=== PATIENT | female | born 1990 | race Caucasian/White ===

== ENCOUNTER 2016-12-01 03:37 | Emergency (ER) | payer OTHER ==
[~2016-12-01] VITALS: Ht 167.6 cm; Wt 63.5 kg
[~2016-12-01 03:37] MED LIST: MEDR150D9
[2016-12-01 03:43] VITALS: Ht 167.6 cm; Wt 63.5 kg
--- NOTE | 2016-12-01 04:25 | RADRPT ---
PROCEDURE: CHEST - 1 VIEW CLINICAL INDICATION: 26-year-old female with cough for 1 month. TECHNIQUE: A single frontal AP semi-erect view of the chest was performed portably. The images we re reviewed on a PACS workstation. COMPARISON: None. FINDINGS: The cardiomediastinal silhouette has a normal appearance. There is no evidence for an infiltrate. T he pulmonary vascularity is within normal limits. There is no evidence for pneumothorax or pneumomed iastinum. The osseous structures are intact. IMPRESSION: No evidence for active cardiopulmonary disease. .Jose Cason MD, Date Time Electronically viewed and signed by .Jose Cason MD, on 12/01/2016 04:24 .Eli/
[2016-12-01] MEDS ORDERED: IPRATROPIUM (NEB) 0.5 MG/2.5 ML AMP NEB STA (04:27)
[2016-12-01] MEDS ORDERED: ALBUTEROL 0.5% (NEB) 2.5 MG/0.5 ML AMP NEB STA (04:27)
--- NOTE | 2016-12-01 04:32 | ERD ---
ER Documentation Chief Complaint Date/Time DATE: 12/01/16 TIME: 04:28 Chief Complaint cough x 1 month, also c/o redness left eye x 3 days HPI 26-year-old female presents here in emergency department for complaints of cough for 1 month. Patient has been having dry cough, with on and off wheezing. Patient has a history of smoking daily. She does not have any fever or chills. Patient was taking course of azithromycin, loss the last 2 pills. She denies any fever or chills. Patient denies any chest pain or palpitations. Patient denies any dizziness. Patient also has history of acid reflux disease. ROS All systems reviewed and are negative except as per history of present illness. Medications Home Meds Active Scripts Cetirizine Hcl* (Zyrtec*) 10 Mg Capsule, 10 MG PO DAILY, #30 TAB.CHEW Prov:MYRON ARORA NP 12/01/16 Fluticasone Propionate (Flonase Allergy Relief) 9.9 Ml [place].susp, 1 SPRAY NASAL BID, #1 BOTTLE TO EACH NOSTRIL Prov:MYRON ARORA NP 12/01/16 Magaldrate/Simethicone* (Mylanta*) 355 Ml Susp, 30 ML PO QID Y for GASTROINTESTINAL UPSET, #1 BOTTLE Prov:MYRON ARORA NP 12/01/16 Guaifenesin-Codeine Phosphate* (Guaifenesin* AC Cough Syrup) 473 Ml Liquid, 5 ML PO Q4H Y for COUGH, #60 ML Prov:MYRON ARORA NP 12/01/16 Albuterol Sulfate* (Proair HFA*) 8.5 Gm Hfa.aer.ad, 2 PUFF INH Q4H Y for WHEEZING AND SOB, #1 INHALER Prov:MYRON ARORA NP 12/01/16 Reported Medications Medroxyprogesterone Acetate* (Depo-Provera*) 150 Mg/Ml Disp.syrin 12/01/09 Allergies Allergies: Coded Allergies: Penicillins (Verified Allergy, Mild, 12/01/16) PMhx/Soc Medical and Surgical Hx: pt denies Medical Hx, pt denies Surgical Hx History of Surgery: No Anesthesia Reaction: No Hx Neurological Disorder: No Hx Respiratory Disorders: No Hx Cardiac Disorders: No Hx Psychiatric Problems: No Hx Miscellaneous Medical Probl: No (DENIES MEDICAL AND SURGICAL HX.) Hx Alcohol Use: No Hx Substance Use: No Hx Tobacco Use: Yes Smoking Status: Current every day smoker FmHx Family History: No coronary disease, No diabetes, No other Physical Exam Vitals Vital Signs Date Time Temp Pulse Resp B/P Pulse Ox O2 Delivery O2 Flow Rate FiO2 12/01/16 04:44 91 22 99 21 12/01/16 03:43 98.6 99 20 123/73 99 Physical Exam GENERAL: The patient is well developed and appropriate for usual state of health, in no apparent distress. HEENT: Atraumatic. Noted left lower eyelid to be erythematous and swelling, left upper eyelid normal, right upper and lower eyelid are normal. Her eyes are PERRL EOM intact, no erythema in the conjunctiva noted. Ears: Normal tympanic membrane, no erythema or bulging. No ear canal swelling. No ear discharge. Nose : normal nasal turbinates, no erythema or swelling. Normal nasal discharge. Throat: oropharynx clear. No tonsillar swelling or tonsillar exudates. No lymphadenopathy. CHEST: Diffuse wheezing bilaterally. There are no rales, crackles or rhonchi. HEART: Regular rate and rhythm. No murmurs, clicks, rubs or gallops. No S3 or S4. ABDOMEN: Soft, nontender and nondistended. Good bowel sounds. No rebound or guarding. No gross peritonitis. No gross organomegaly or masses. No Burns sign or McBurney point tenderness. BACK: No midline or flank tenderness. EXTREMITIES: Equal pulses bilaterally. There is no peripheral clubbing, cyanosis or edema. No focal swelling or erythema. Full range of motion. Grossly neurovascularly intact. NEURO: Alert and oriented. Cranial nerves 2-12 intact. Motor strength in all 4 extremities with 5/5 strength. Sensation grossly intact. Normal speech and gait. SKIN: There is no apparent rash or petechia. The skin is warm and dry. HEMATOLOGIC AND LYMPHATIC: There is no evidence of excessive bruising or lymphedema. No gross cervical, axillary, or inguinal lymphadenopathy. Results 24 hrs Current Medications Medications (Trade) Dose Ordered Sig/Shannan Route PRN Reason Start Time Stop Time Status Last Admin Dose Admin Albuterol (Proventil 0.5% (Neb)) 5 mg ONCE STAT NEB 3/12/17 04:27 12/01/16 04:28 DC 12/01/16 04:40 Ipratropium Aubrey (Atrovent 0.02% (Neb)) 0.5 mg ONCE STAT NEB 12/01/16 04:27 12/01/16 04:28 DC 12/01/16 04:40 PROCEDURE: CHEST - 1 VIEW CLINICAL INDICATION: 26-year-old female with cough for 1 month. TECHNIQUE: A single frontal AP semi-erect view of the chest was performed portably. The images were reviewed on a PACS workstation. COMPARISON: None. FINDINGS: The cardiomediastinal silhouette has a normal appearance. There is no evidence for an infiltrate. The pulmonary vascularity is within normal limits. There is no evidence for pneumothorax or pneumomediastinum. The osseous structures are intact. IMPRESSION: No evidence for active cardiopulmonary disease. .Jose Cason MD, MD Date Time Electronically viewed and signed by .Jose Cason MD, MD on 12/01/2016 04:24 .M/ CC: MYRON ARORA CALCULATOR OPERATOR Procedures/MDM Medical Decision Making: Patient symptoms are most likely consistent with acute bronchitis, which viral in origin. Chronic cough can be also caused by acid reflux disease. There is low suspicion for Pneumonia at this time since patients lungs sounds are clear, patient O2 saturation is normal and patient doesnt show any respiratory distress. Patients chest xray doesnt show infiltrates or any other cardiopulmonary emergencies at this time. There is low suspicion for other cardiopulmonary emergencies at this time such as CHF, Pulmonary Embolism, Pneumothorax, Aortic Aneurysm or any other cardiopulmonary emergencies at this time. There is low suspicion for sepsis. Patient appears well and is hemodynamically stable. She does not have any fever. Patient's left lower eyelid redness and swelling consistent with blepharitis. No symptoms of periorbital or orbital cellulitis. No symptoms of other eye emergencies at this time. Disposition: Home. Condition: Stable Prescriptions: Guaifenesin with codeine, Zyrtec, Mylanta, Flonase, albuterol, erythromycin ophthalmic solution Instructions: Patient is advised to take medications as prescribed. Patient is advised to rest. Patient advised to increase fluid intake, do humidifier at home and if possible, do salt water gargles. Patient is advised that if symptoms are worse, shortness of breath, uncontrolled fever, stridor, vomiting, worst signs and symptoms to return to emergency department immediately. Otherwise, patient is advised to follow up with primary doctor in 5-7 days. Adviced to avoid smoking Departure Diagnosis: Primary Impression: Chronic cough Additional Impressions: Acute bronchitis Bronchitis organism: unspecified organism Qualified Code: J20.9 - Acute bronchitis, unspecified organism Blepharitis of left lower eyelid Blepharitis type: unspecified type Qualified Code: H01.005 - Blepharitis of left lower eyelid, unspecified type Condition: Stable Patient Instructions: Bronchitis With Wheezing (Adult), Cough, Chronic, Uncertain Cause, (Adult) Additional Instructions: Patient is advised to take medications as prescribed. Patient is advised to rest. Patient advised to increase fluid intake, do humidifier at home and if possible, do salt water gargles. Patient is advised that if symptoms are worse, shortness of breath, uncontrolled fever, stridor, vomiting, worst signs and symptoms to return to emergency department immediately. Otherwise, patient is advised to follow up with primary doctor in 5-7 days. Advised to avoid smoking MYRON ARORA NP Dec 01, 2016 04:32
[2016-12-01] MEDS ORDERED: CETI10CA PO (04:34)
[2016-12-01] MEDS ORDERED: MAG-19 PO (04:34)
[2016-12-01] MEDS ORDERED: ALBU8.5H3 INH (04:34)
[2016-12-01] MEDS ORDERED: FLUT9.9S NASAL (04:34)
[2016-12-01] MEDS ORDERED: GUAI473L22 PO (04:34)
[2016-12-01] MEDS ORDERED: ERYTOPOI LEFT EYE (05:05)
[2016-12-01 05:31] VITALS: BP 138/57; PULSE 96; RESP 20; TEMP 97.7
== END 2016-12-01 05:38 | disposition home or self-care (01) ==
LOC: FTE 03:37
DX: R05 Cough (principal); J20.9 Acute bronchitis, unspecified; H01.005 Unspecified blepharitis left lower eyelid; F17.210 Nicotine dependence, cigarettes, uncomplicated
CPT/HCPCS: 71010; 94664; Z7502; Z7610

== ENCOUNTER 2017-03-10 20:41 | Emergency (ER) | payer MEDICAID, OTHER ==
[~2017-03-10] VITALS: Ht 167.6 cm; Wt 60.5 kg
[~2017-03-10 20:41] MED LIST changes: +ALBU8.5H3 INH; +CETI10CA PO; +ERYTOPOI LEFT EYE; +FLUT9.9S NASAL; +GUAI473L22 PO; +MAG-19 PO
[2017-03-10 20:53] VITALS: Ht 167.6 cm; Wt 60.5 kg
[2017-03-10] MEDS ORDERED: IBUP800T25 PO (21:42)
[2017-03-10] MEDS ORDERED: CEPH-443 PO (21:42)
[2017-03-10] MEDS ORDERED: SULF1TAB31 PO (21:42)
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
[2017-03-10] MEDS ORDERED: CEPHALEXIN 500 MG CAP PO ONE (22:00)
[2017-03-10] MEDS ORDERED: TRIMETHOPRIM/SULFAMETHOX (DS) TAB PO ONE (22:00)
--- NOTE | 2017-03-10 22:33 | RADRPT ---
PROCEDURE: XR Chest. CLINICAL INDICATION: Left rib pain. TECHNIQUE: Portable AP upright view of the chest was obtained. COMPARISON: 12/01/2016 FINDINGS: The cardiomediastinal silhouette is within normal limits. The lungs are clear. There is no evidenc e for pleural effusion, pneumothorax or pulmonary vascular congestion. The osseous structures are i ntact with no evidence for acute abnormality. RPTAT:HJJR IMPRESSION: No evidence for acute intrathoracic pathology or interval change from 12/01/2016. Physician Sugey Date Time Electronically viewed and signed by Physician Sugey on 03/10/2017 22:32 /
== END 2017-03-10 22:20 | disposition home or self-care (01) ==
LOC: FTE 20:41
DX: L02.02 Furuncle of face (principal); S20.212A Contusion of left front wall of thorax, initial encounter; F17.210 Nicotine dependence, cigarettes, uncomplicated; Y08.89XA Assault by other specified means, initial encounter
CPT/HCPCS: 71010; Z7502; Z7610

== ENCOUNTER 2017-05-15 05:01 | Emergency (ER) | payer MEDICAID, OTHER ==
[~2017-05-15] VITALS: Ht 167.6 cm; Wt 61.5 kg
[~2017-05-15 05:01] MED LIST changes: +CEPH-443 PO; +IBUP800T25 PO; +SULF1TAB31 PO
[2017-05-15 05:05] VITALS: Ht 167.6 cm; Wt 61.5 kg
[2017-05-15] MEDS ORDERED: ONDANSETRON (ODT) 4 MG TAB ODT STA (06:02)
[2017-05-15] MEDS ORDERED: DOXY100T20 PO (06:18)
[2017-05-15] MEDS ORDERED: BEN25 PO (06:19)
[2017-05-15] MEDS ORDERED: ONDA4TAB8 PO (06:19)
[2017-05-15] MEDS ORDERED: CLINDAMYCIN 300 MG INJ IM ONE (06:30)
[2017-05-15] MEDS ORDERED: CLINDAMYCIN 900 MG INJ IM ONE (06:30)
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
[2017-05-15 07:09] VITALS: BP 124/85; PULSE 78; RESP 18; TEMP 97.9
== END 2017-05-15 07:10 | disposition home or self-care (01) ==
LOC: FTE 05:01
DX: L02.413 Cutaneous abscess of right upper limb (principal); F17.210 Nicotine dependence, cigarettes, uncomplicated; R11.0 Nausea
CPT/HCPCS: 96372; S0077; Z7502; Z7610

== ENCOUNTER 2017-11-05 21:01 | Emergency (ER) | END 2017-11-06 03:00 | disposition left against medical advice (07) ==